=== PATIENT | female | born 1935 | race Caucasian/White ===

== ENCOUNTER 2016-07-11 21:39 | Emergency (ER) | payer MEDICAID, MEDICARE ==
[~2016-07-11] VITALS: Wt 65.9 kg
== END 2016-07-12 03:32 | disposition left against medical advice (07) ==
LOC: E/R 21:39
DX: Z53.21 Procedure and treatment not carried out due to patient leaving prior to being seen by health care provider (principal)

== ENCOUNTER 2017-05-26 17:31 | Inpatient (IN) | END 2017-05-27 13:35 | disposition left against medical advice (07) | DRG 192 ==